=== PATIENT | female | born 1980 | race Two or more races ===

== ENCOUNTER 2022-04-28 03:26 | Emergency (ER) | payer OTHER ==
[~2022-04-28] VITALS: Ht 152.4 cm; Wt 63.0 kg
[2022-04-28 03:48] VITALS: BP 126/82
[2022-04-28] MEDS ORDERED: BACITRACIN 0.9 GM PACKET OINTMENT TP ONE (04:00)
== END 2022-04-28 05:40 | disposition home or self-care (01) ==
LOC: EMS 03:29
DX: Z48.00 Encounter for change or removal of nonsurgical wound dressing (principal); F17.210 Nicotine dependence, cigarettes, uncomplicated; F12.90 Cannabis use, unspecified, uncomplicated
CPT/HCPCS: 99281; Z7502; Z7610